=== PATIENT | female | born 1940 | race African-American/Black ===

== ENCOUNTER → 2016-07-23 | Outpatient (CLI) | payer MEDICARE, MEDICAID ==
[~2016-07-23] MED LIST: ACETAMINOPHEN325 M1 PO; ACETAMINOPHEN500 M3 PO; ACYCLOVIR800 MG PO; ASPIRIN 81MG TA81 MG PO; ATIVAN GENERIC0.5 MG PO; BACLOFEN 10MG T10 MG PO; BENADRYL 25MG C25 MG PO; BENZTROPINE ME0.5 MG PO; CELEXA20 M1 PO; CITALOPRAM10 MG PO; COMPAZINE10 MG PO; DEPAKOTE 125MG125 MG PO; DEPAKOTE 250MG250 MG PO; DEPAKOTE 500MG500 MG PO; ENULOSE10 GM/15 M PO; ETODOLAC400 MG PO; ETOLDOLAC400 MG PO; FLEXERIL10 MG PO; GENTAMICIN O5 ML/BOT OP; IMODIUM 2MG. CAP2 MG PO; KEFLEX 500MG.500 MG PO; LISINOPRIL 10MG10 MG PO; MAXZIDE 25 MG-31 TAB PO; MAXZIDE 50 MG-71 TAB PO; METFORMIN500 MG PO; NYSTATIN100000 U/2 EX; NYSTATIN100000 U/G EX; PROAIR HFA0.09 MG/AC IH; PROMETHAZINE25 M1 PO; Q-TUSSIN DM 10120 ML PO; Q-TUSSIN100 MG/5 M PO; RISPERDAL 0.50.5 MG PO; RISPERDAL0.5 MG PO; RISPERDAL1 MG PO; ROBITUSSIN DM S10 ML PO; SILVADENE1% TP; TOVIAZ8 MG PO
--- NOTE | 2016-07-23 11:02 | CARDIOVASCULAR REPORT ---
"Venous Exam Indications: 729.81 Swelling of limb. IMPRESSIONS 1. There is no evidence of significant Reflux. 2. Technically difficult study secondary to obesity and tremors .No evidence of deep or superficial vein thrombosis involving the right lower extremity 3. No evidence of deep or superficial vein thrombosis involving the left lower extremity Complete lower extremity venous duplex evaluation. Doppler flow study including spectral analysis, color and rome scale imaging. Location: Vascular laboratory. Patient status: Outpatient. Tables: Venous flow and imaging: + +-------+ + |Location |Overall|Flow properties | + +-------+ + |Right common femoral |Patent |Normal phasicity; spontaneous; | | | |normal augmentation; compressible| + +-------+ + |Right saphenofemoral junction|Patent |Compressible | + +-------+ + |Right profunda femoral |Patent |Compressible | + +-------+ + |Right femoral |Patent |Normal phasicity; spontaneous; | | | |normal augmentation; | | | |compressible; no reflux | + +-------+ + |Right greater saphenous |Patent |Normal phasicity; spontaneous; | | | |normal augmentation; compressible| + +-------+ + |Right popliteal |Patent |Normal phasicity; spontaneous; | | | |normal augmentation; compressible| + +-------+ + |Right posterior tibial |Patent |Compressible | + +-------+ + |Right peroneal |Patent |Compressible | + +-------+ + |Right gastrocnemius |Patent |Compressible | + +-------+ + |Right soleal |Patent |Compressible | + +-------+ + |Left common femoral |Patent |Normal phasicity; spontaneous; | | | |normal augmentation; compressible| + +-------+ + |Left saphenofemoral junction |Patent |Compressible | + +-------+ + |Left profunda femoral |Patent |Compressible | + +-------+ + |Left femoral |Patent |Normal phasicity; spontaneous; | | | |normal augmentation; compressible| + +-------+ + |Left greater saphenous |Patent |Normal phasicity; spontaneous; | | | |normal augmentation; compressible| + +-------+ + |Left popliteal |Patent |Normal phasicity; spontaneous; | | | |normal augmentation; compressible| + +-------+ + |Left posterior tibial |Patent |Compressible | + +-------+ + |Left peroneal |Patent |Compressible | + +-------+ + |Left gastrocnemius |Patent |Compressible | + +-------+ + |Left soleal |Patent |Compressible | + +-------+ + (Report amended ) Electronically signed by: Michael Oliveira [id number]"
== END ==
LOC: RAD 07:30 → RT 09:57
DX: R60.0 Localized edema (principal); R94.31 Abnormal electrocardiogram [ECG] [EKG]; R00.0 Tachycardia, unspecified

== ENCOUNTER 2017-06-01 10:03 | Emergency (ER) | payer MEDICARE, MEDICAID ==
[~2017-06-01] VITALS: Ht 152.4 cm; Wt 99.8 kg
--- NOTE | 2017-06-01 10:19 | Emergency Room Report ---
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 N Clinical Suspician of Infection? N Mental Status: 1 - Regular (Normal Baseline) Sepsis Risk:Low Sepsis Risk Have you (or family members/close friends) recently traveled outside the [place]? N If Yes, where/when: Have you had exposure to infectious disease within the past month? N TB? Other? Specify: 76 years old -Citizen Of The [place] female who was sent by my personal intermediate because of elevated systolic blood pressure of 200 mmhg. upon EMS arrival the blood pressure was 150 mmhg and heart rate of 90/m. Upon arrival to the ED her systolic blood pressure 123 mmhg and HR 92/min. the patient is asymptomatic with no complaints. The patient reports that her blood pressure was taken earlier before she takes a blood pressure medicine, she was given her blood pressure medicine and this was called. She denies having chest pain shortness of breath palpitations headache neck stiffness nausea or vomiting or abdominal pain. She has chronic leg swelling. Source patient, RN notes reviewed, EMS, halfway records Exam Limitations no limitations ALLERGIES Coded Allergies: No Known Allergies (10/04/15) Home Medications Reported Medications Divalproex Sodium (Depakote) 500 MG PO QHS Risperidone (Risperdal) 1 TAB PO QHS ASPIRIN (Aspirin) 81 MG PO DAILY Benztropine Mesylate 0.5 MG PO BID Divalproex Sodium (Depakote) 250 MG PO QAM LISINOPRIL (Lisinopril) 10 MG PO DAILY TRIAMTERENE/HYDROCHLOROTHIAZID (Triamterene-Hctz 75-50 MG Tab) 1 TAB PO BID BACLOFEN (Baclofen) 10 MG PO BID GENTAMICIN SULFATE (GENTAMICIN 0.3% OPH SOLN) 1 DROP OP QID Metformin HCL (Metformin) 500 MG PO BID Fesoterodine Fumarate (Toviaz) 8 MG PO DAILY Citalopram Hydrobromide (Celexa) 20 MG PO DAILY History Medical History General CAD? No Angina: No [place]: No Hypertension? Yes Hyperlipidemia? No CHF? No DVT? No PE? No COPD? No Asthma? No Anemia? No GERD? No Gastric ulcers? No GI Bleed? No Hernia? No Thyroid Problems? No Hypothyroidism? No CVA? No Seizures? Yes Diabetes? Yes Insulin Dependent: No Insulin Pump: No Home FSBS? Yes Renal Insuffiency? No End Stage Renal Disease? No UTI? No Stones? No BPH? No GB Disease: No Nephritic Syndrome? No Asplenia? No Hepatitis? No Sickle Cell Disease? No Arthritis? Yes Migraines? No Cataracts? No Glaucoma? No MRSA? No HIV? No TB? No Anxiety? Yes Depression? Yes Cancer? No More? Yes Additional hx: BIPOLAR, SCHIZOPHRENIA Immunization Hx DT/Tetanus < 1 Year Ago Flu 2015-16FSN Pneumonia Refuses Surgical Hx Previous Surgery?N Family History Family Hx Diabetes Yes Hypertension Yes Cancer Yes Social History Smoking Hx Smoker: Never Smoker Tobacco: No Alcohol Alcohol: No Review of Systems All Other Systems Reviewed and Negative Constitutional no symptoms reported, see HPI Eyes no symptoms reported ENT no symptoms reported. Respiratory no symptoms reported Cardiovascular no symptoms reported Gastrointestinal no symptoms reported Genitourinary no symptoms reported. Musculoskeletal no symptoms reported Skin no symptoms reported Psychiatric/Neurological no symptoms reported Physical Exam Vital Signs Vital Signs Date Time Temp Pulse Resp B/P Pulse O2 O2 Flow FiO2 Ox Delivery Rate 06/01 1052 90 18 140/78 95 06/01 1050 92 18 140/78 95 06/01 1003 98.2 92 18 123/44 94 - WBC >12,000 or <4,000 or 10% bands? 2 or more SIRS Criteria Met? B/P:123/44 MAP:70 Creatinine >2.0? UA output<0.5ml/kg/hr for 2 hrs? Platelet count >100,000? Lactate >2.0mmol/1? INR >1.2 or PTT > than 60 sec? Evidence of Organ Dysfunction? Provider documented clinical suspician of infection? N Sepsis Criteria Count: 1 Sepsis Risk: Low Sepsis Risk General Appearance normal appearance, WD/WN, no apparent distress (patient has no complaint) Eye Exam - bilateral eye normal exam, bilateral eye PERRL, bilateral eye EOMI Ear, Nose, Throat hearing grossly normal (macroglossia) Neck normal inspection, non-tender, supple, full range of motion Respiratory Status Yes: trachea midline, chest symmetrical, non tender chest. No: respiratory distress. Lung Sounds bilateral: normal breath sounds, lungs clear. Cardiovascular normal exam, regular rate/rhythm, no peripheral edema, no gallop, no JVD, no murmur, no rub, normal peripheral pulses Peripheral Pulses Pulses normal Yes Gastrointestinal normal bowel sounds, normal exam, non tender, soft, no organomegaly Back normal inspection, no CVA tenderness, no vertebral tenderness Extremities non-tender, normal range of motion, normal inspection, normal capillary refill, no calf tenderness, swelling, the patient has bilateral venous stasis of the lower extremities with no calf tenderness. Equal and symmetrical by inspection. 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 No Results/Orders Laboratory Tests 06/01/17 1040: Sodium 134 L, Potassium 4.3, Chloride 98, Carbon Dioxide 27, BUN 19 H, Creatinine 1.4 H, Estimated Creat Clear 55, Estimated GFR (MDRD) 37 L, Glucose 222 H, Calcium 9.2, Magnesium 1.1 L, Total Bilirubin 0.3, AST 64 H, ALT 49, Alkaline Phosphatase 67, Troponin I < 0.02, Total Protein 8.5 H, Albumin 3.3 L , Globulin 5.2 H, Albumin/Globulin Ratio 0.6 L, WBC 7.4, RBC 4.15 L, Hgb 12.8 , Hct 41.1, MCV 99.2 H, RDW 12.7, Plt Count 235, MPV 8.4, Gran % 46.2, Gran # 3.4, Lymphocytes % 44.3, Monocytes % 4.9, Eosinophils % 3.9, Basophils % 0.7, Lymphocytes # 3.3, Monocytes # 0.4, Eosinophils # 0.3, Basophils # 0.1, PUBS MCHC 31.0 L, MCH 30.7 Current Medication Orders Sig/Keturah Start time Last Medication Dose Route Stop Time Status Admin Sodium Chloride 10 ML PRN PRN 06/01 1030 AC IV 06/02 1019 Orders Procedure Date/time Status IV SALINE LOCK 06/01 1019 Active GEN NSG/PT REQ (NOT FOR MEDS!) 06/01 1019 Active ELECTROCARDIOGRAM REQUEST 06/01 1011 Active TROPONIN I 06/01 1011 Complete MAGNESIUM 06/01 1011 Complete CBC WITH AUTO DIFF 06/01 1011 Complete CHEM 12 PROFILE 06/01 1011 Complete CM/EKG CM/EKG EKG rate, NSR, rhythm, no evid. of ischemic chgs, no ectopy, normal QRS, normal ND, normal EKG Comments NSR 88/min, baseline artifact, p, qrs and T waves are within normal limit. Departure Departure Time of Disposition 1128 Disposition DC Home or Self Care(routine) Clinical Impression Primary Impression: Labile hypertension Secondary Impressions: Chronic renal insufficiency, Hypomagnesemia, Tremors of nervous system, Venous stasis dermatitis of both lower extremities Condition STABLE Referrals Sixto MANCERA,Ajit Sharif (Family) Additional Instructions continue blood pressure monitoring and report readings to the pcp for BP management. Also,she will need a Neurology referral for her tremors. follow up with Dr Rousseau for a magnesium recheck on Saturday. Discharge Counseling Counseled pt/family regarding diagnosis, test results, medications/RX, home care, follow up needs Prescriptions Current Visit Scripts Magnesium Oxide (Magnesium) 400 MG PO DAILY #3 CAPSULE ED Critical Care Critical Care No at 1131
--- NOTE | 2017-06-01 10:19 | Emergency Room Report ---
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 N Clinical Suspician of Infection? N Mental Status: 1 - Regular (Normal Baseline) Sepsis Risk:Low Sepsis Risk Have you (or family members/close friends) recently traveled outside the [place]? N If Yes, where/when: Have you had exposure to infectious disease within the past month? N TB? Other? Specify: 76 years old -[place]ron[place] female who was sent by my personal chcf because of elevated systolic blood pressure of 200 mmhg. upon EMS arrival the blood pressure was 150 mmhg and heart rate of 90/m. Upon arrival to the ED her systolic blood pressure 123 mmhg and HR 92/min. the patient is asymptomatic with no complaints. The patient reports that her blood pressure was taken earlier before she takes a blood pressure medicine, she was given her blood pressure medicine and this was called. She denies having chest pain shortness of breath palpitations headache neck stiffness nausea or vomiting or abdominal pain. She has chronic leg swelling. Source patient, RN notes reviewed, EMS, care home records Exam Limitations no limitations ALLERGIES Coded Allergies: No Known Allergies (10/04/15) Home Medications Reported Medications Divalproex Sodium (Depakote) 500 MG PO QHS Risperidone (Risperdal) 1 TAB PO QHS ASPIRIN (Aspirin) 81 MG PO DAILY Benztropine Mesylate 0.5 MG PO BID Divalproex Sodium (Depakote) 250 MG PO QAM LISINOPRIL (Lisinopril) 10 MG PO DAILY TRIAMTERENE/HYDROCHLOROTHIAZID (Triamterene-Hctz 75-50 MG Tab) 1 TAB PO BID BACLOFEN (Baclofen) 10 MG PO BID GENTAMICIN SULFATE (GENTAMICIN 0.3% OPH SOLN) 1 DROP OP QID Metformin HCL (Metformin) 500 MG PO BID Fesoterodine Fumarate (Toviaz) 8 MG PO DAILY Citalopram Hydrobromide (Celexa) 20 MG PO DAILY History Medical History General CAD? No Angina: No [place]: No Hypertension? Yes Hyperlipidemia? No CHF? No DVT? No PE? No COPD? No Asthma? No Anemia? No GERD? No Gastric ulcers? No GI Bleed? No Hernia? No Thyroid Problems? No Hypothyroidism? No CVA? No Seizures? Yes Diabetes? Yes Insulin Dependent: No Insulin Pump: No Home FSBS? Yes Renal Insuffiency? No End Stage Renal Disease? No UTI? No Stones? No BPH? No GB Disease: No Nephritic Syndrome? No Asplenia? No Hepatitis? No Sickle Cell Disease? No Arthritis? Yes Migraines? No Cataracts? No Glaucoma? No MRSA? No HIV? No TB? No Anxiety? Yes Depression? Yes Cancer? No More? Yes Additional hx: BIPOLAR, SCHIZOPHRENIA Immunization Hx DT/Tetanus < 1 Year Ago Flu 2015-16FSN Pneumonia Refuses Surgical Hx Previous Surgery?N Family History Family Hx Diabetes Yes Hypertension Yes Cancer Yes Social History Smoking Hx Smoker: Never Smoker Tobacco: No Alcohol Alcohol: No Review of Systems All Other Systems Reviewed and Negative Constitutional no symptoms reported, see HPI Eyes no symptoms reported ENT no symptoms reported. Respiratory no symptoms reported Cardiovascular no symptoms reported Gastrointestinal no symptoms reported Genitourinary no symptoms reported. Musculoskeletal no symptoms reported Skin no symptoms reported Psychiatric/Neurological no symptoms reported Physical Exam Vital Signs Vital Signs Date Time Temp Pulse Resp B/P Pulse O2 O2 Flow FiO2 Ox Delivery Rate 06/01 1052 90 18 140/78 95 06/01 1050 92 18 140/78 95 06/01 1003 98.2 92 18 123/44 94 - WBC >12,000 or <4,000 or 10% bands? 2 or more SIRS Criteria Met? B/P:123/44 MAP:70 Creatinine >2.0? UA output<0.5ml/kg/hr for 2 hrs? Platelet count >100,000? Lactate >2.0mmol/1? INR >1.2 or PTT > than 60 sec? Evidence of Organ Dysfunction? Provider documented clinical suspician of infection? N Sepsis Criteria Count: 1 Sepsis Risk: Low Sepsis Risk General Appearance normal appearance, WD/WN, no apparent distress (patient has no complaint) Eye Exam - bilateral eye normal exam, bilateral eye PERRL, bilateral eye EOMI Ear, Nose, Throat hearing grossly normal (macroglossia) Neck normal inspection, non-tender, supple, full range of motion Respiratory Status Yes: trachea midline, chest symmetrical, non tender chest. No: respiratory distress. Lung Sounds bilateral: normal breath sounds, lungs clear. Cardiovascular normal exam, regular rate/rhythm, no peripheral edema, no gallop, no JVD, no murmur, no rub, normal peripheral pulses Peripheral Pulses Pulses normal Yes Gastrointestinal normal bowel sounds, normal exam, non tender, soft, no organomegaly Back normal inspection, no CVA tenderness, no vertebral tenderness Extremities non-tender, normal range of motion, normal inspection, normal capillary refill, no calf tenderness, swelling, the patient has bilateral venous stasis of the lower extremities with no calf tenderness. Equal and symmetrical by inspection. 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 No Results/Orders Laboratory Tests 06/01/17 1040: Sodium 134 L, Potassium 4.3, Chloride 98, Carbon Dioxide 27, BUN 19 H, Creatinine 1.4 H, Estimated Creat Clear 55, Estimated GFR (MDRD) 37 L, Glucose 222 H, Calcium 9.2, Magnesium 1.1 L, Total Bilirubin 0.3, AST 64 H, ALT 49, Alkaline Phosphatase 67, Troponin I < 0.02, Total Protein 8.5 H, Albumin 3.3 L , Globulin 5.2 H, Albumin/Globulin Ratio 0.6 L, WBC 7.4, RBC 4.15 L, Hgb 12.8 , Hct 41.1, MCV 99.2 H, RDW 12.7, Plt Count 235, MPV 8.4, Gran % 46.2, Gran # 3.4, Lymphocytes % 44.3, Monocytes % 4.9, Eosinophils % 3.9, Basophils % 0.7, Lymphocytes # 3.3, Monocytes # 0.4, Eosinophils # 0.3, Basophils # 0.1, PUBS MCHC 31.0 L, MCH 30.7 Current Medication Orders Sig/Keturah Start time Last Medication Dose Route Stop Time Status Admin Sodium Chloride 10 ML PRN PRN 06/01 1030 AC IV 06/02 1019 Orders Procedure Date/time Status IV SALINE LOCK 06/01 1019 Active GEN NSG/PT REQ (NOT FOR MEDS!) 06/01 1019 Active ELECTROCARDIOGRAM REQUEST 06/01 1011 Active TROPONIN I 06/01 1011 Complete MAGNESIUM 06/01 1011 Complete CBC WITH AUTO DIFF 06/01 1011 Complete CHEM 12 PROFILE 06/01 1011 Complete CM/EKG CM/EKG EKG rate, NSR, rhythm, no evid. of ischemic chgs, no ectopy, normal QRS, normal DE, normal EKG Comments NSR 88/min, baseline artifact, p, qrs and T waves are within normal limit. Departure Departure Time of Disposition 1128 Disposition DC Home or Self Care(routine) Clinical Impression Primary Impression: Labile hypertension Secondary Impressions: Chronic renal insufficiency, Hypomagnesemia, Tremors of nervous system, Venous stasis dermatitis of both lower extremities Condition STABLE Referrals Sixto MANCERA,Ajit Sharif (Family) Additional Instructions continue blood pressure monitoring and report readings to the pcp for BP management. Also,she will need a Neurology referral for her tremors. follow up with Dr Rousseau for a magnesium recheck on Saturday. Discharge Counseling Counseled pt/family regarding diagnosis, test results, medications/RX, home care, follow up needs Prescriptions Current Visit Scripts Magnesium Oxide (Magnesium) 400 MG PO DAILY #3 CAPSULE ED Critical Care Critical Care No at 1131
--- OUTSIDE RECORDS SUMMARY | 2017-06-01 10:41 | External Medical Summary Rpt | CCD ---
Demographics Preferred Language Honduran Marital Status Unknown Muslim Affiliation Unknown Race Unknown Ethnic Group Unknown Author Author , HELENA MALIK Address Unknown Phone Immunization No patient found.
--- OUTSIDE RECORDS SUMMARY | 2017-06-01 10:41 | External Medical Summary Rpt | CCD ---
Author Author , HELENA Organization [facility] Address Unknown Phone [email or web address] Team Providers Care Tractor Operator Name Role Phone Louis Henson MD, Unavailable Unavailable Louis Henson MD Purpose Continuity of Care Document - 05-10-2013 through 2016 Problems Code Diagnosis DOS Provider Status 250.00 250.00 DIAB 05-11-2013 [facility], TYPE Hospital II OR UNSPEC TYPE, NOT UNCNTRLD 401.9 401.9 05-11-2013 [place] HYPERTENSIO [facility] 729.1 729.1 05-11-2013 [place] MYALGIA AND [facility] MYOSITIS Hospital NOS 786.59 786.59 05-11-2013 [place] CHEST PAIN [facility] V58.69 V58.69 OTH 05-11-2013 [place] MED,LT,[facility] ENT USE Hospital Allergies, Adverse Reactions, Alerts Type Allergy to substance Adverse Reaction to Substance Substance Reaction Severity NO KNOWN ALLERGIES Unknown Unknown Vital Signs 05-11-2013 00:22 Name Value Interpretat Reference Comment ion Range BP 100 mm[Hg] Diastolic BP Systolic 153 mm[Hg] Heart 100 /min Rate/Pulse O2% 95 % Respiratory 18 /min Rate 05-10-2013 20:44 Name Value Interpretat Reference Comment ion Range BP 88 mm[Hg] Diastolic BP Systolic 195 mm[Hg] Heart 104 /min Rate/Pulse O2% 99 % Respiratory 20 /min Rate Results Labs Lab Lab Date Result Refere Interp Status Commen Order Detail nces retati t Range on TSH SerPl DL<=0.005 mIU/L-aCnc (09-20-2016 16:12) TSH 4.00 0.4-4.2 complet SerPl 017 uIU/mL ed DL<=0.0 16:12 05 mIU/L-a Cnc COMPREHENSIVE METABOLIC PANEL (05-10-2013 19:30) Glucose 105 74-106 complet 013 mg/dL ed Bld-mCn 19:30 c BUN 05-10- 26 7-18 complet Bld-mCn 013 mg/dL ed c 19:30 Creat 05-10-2 1.7 0.6-1.0 complet SerPl-m 013 mg/dL ed Cnc 19:30 ESTIMAT 05-10-2 37 50-200 complet ED 013 ML/MIN ed CREATIN 19:30 INE CLEARAN CE GFR 30 59- complet (ESTIMA 013 ML/MIN ed RUBEN) 19:30 Sodium 05-10- 126 136-145 complet SerPl-s 013 mmoL/L ed Cnc 19:30 Potassi 3.9 3.5-5.1 complet um 013 mmoL/L ed SerPl-s 19:30 Cnc Chlorid 05-10- 92 98-107 complet e 013 mmoL/L ed SerPl-s 19:30 Cnc CO2 27 21.0-32 complet SerPl-s 013 mmoL/L .0 ed Cnc 19:30 Calcium 05-10- 8.2 8.5-10. complet 013 mg/dL 1 ed SerPl-m 19:30 Cnc Prot 05-10- 8.3 6.4-8.2 complet SerPl-m 013 gm/dL ed Cnc 19:30 Albumin 05-10- 3.4 3.4-5.0 complet 013 gm/dL ed SerPl-m 19:30 Cnc Globuli 05-10- 4.9 1.3-3.2 complet n 013 gm/dL ed Ser-mCn 19:30 c Albumin 05-10-2 0.7 UNK 1.1-1.8 complet /Glob 013 ed SerPl-m 19:30 Rto Bilirub 05-10-2 0.2 0.2-1.0 complet 013 mg/dL ed SerPl-m 19:30 Cnc AST 05-10- 19 U/L 15-37 complet SerPl-c 013 ed Cnc 19:30 ALT 05-10- 34 U/L 30-65 complet SerPl-c 013 ed Cnc 19:30 ALP 05-10- 77 U/L 50-136 complet SerPl-c 013 ed Cnc 19:30 CBC with AUTO DIFF (05-10-2013 19:30) WBC # 10-20-2 10.4 4.8-10. complet Bld 013 K/MM3 8 ed Auto 19:30 RBC # 10-20-2 3.62 4.2-5.4 complet Bld 013 M/mm3 ed Auto 19:30 Hgb 10-20-2 11.2 12.2-16 complet Bld-mCn 013 g/dL .2 ed c 19:30 Hct Fr 10-20-2 33.8 % 37.0-47 complet Bld 013 .0 ed 19:30 MCV RBC 10-20-2 93.5 fl 82.2-97 complet 013 .8 ed 19:30 MCH RBC 10-20-2 30.9 pg 27-31.2 complet Qn 013 ed Auto 19:30 MEAN 10-20-2 33.1 31.8-35 complet CORPUSC 013 g/dl .4 ed ULAR 19:30 HGB CONC RDW RBC 10-20-2 14.2 % 11.5-17 complet Auto 013 .5 ed 19:30 Platele 10-20-2 277 142-424 complet t Bld 013 K/mm3 ed Ql 19:30 Manual MEAN 10-20-2 7.4 fl 7.4-10. complet PLATELE 013 4 ed T 19:30 VOLUME Granulo 10-20-2 35.4 % 37.0-80 complet cytes 013 .0 ed Fr Bld 19:30 Auto LYMPH % 10-20-2 51.8 % 10-50.0 complet 013 ed 19:30 Monocyt 10-20-2 5.6 % 1.7-9.3 complet es Fr 013 ed Bld 19:30 Auto Eosinop 10-20-2 6.5 % 0.1-12. complet hil Fr 013 0 ed Bld 19:30 Auto Basophi 10-20-2 0.8 % 0.1-2.0 complet ls Fr 013 ed Bld 19:30 Auto Granulo 10-20-2 3.7 1.8-7.8 complet cytes # 013 K/mm3 ed Bld 19:30 Auto Lymphoc 10-20-2 5.4 0.7-4.5 complet ytes Fr 013 K/mm3 ed Bld 19:30 Auto Monocyt 10-20-2 0.6 0.1-1.0 complet es # 013 K/mm3 ed Bld 19:30 Auto Eosinop 05-10- 0.7 0.0-0.4 complet hil # 013 K/mm3 ed Bld 19:30 Auto Basophi 05-10- 0.1 0-0.2 complet ls # 013 K/MM3 ed Bld 19:30 Auto Encounters Encounter Start End Date Code Location Performer Type Date Emergency KEISHA Henson MD (ER) 3 19:54 3 00:20 [facility]
--- OUTSIDE RECORDS SUMMARY | 2017-06-01 10:41 | External Medical Summary Rpt | CCD ---
Demographics Preferred Language Pakistani Marital Status Unknown Baptist Affiliation Unknown Race Unknown Ethnic Group Unknown Author Author , HELENA MALIK Address Unknown Phone Immunization No patient found.
--- OUTSIDE RECORDS SUMMARY | 2017-06-01 10:41 | External Medical Summary Rpt | CCD ---
Author Author , HELENA Organization [facility] Address Unknown Phone [email or web address] Care Team Providers Care Associate Loan Officer Name Role Phone Louis Henson MD, Unavailable Unavailable Louis Henson MD Purpose Continuity of Care Document - 05-10-2013 through 2016 Problems Code Diagnosis DOS Provider Status 250.00 250.00 DIAB 05-11-2013 [facility], TYPE Hospital II OR UNSPEC TYPE, NOT UNCNTRLD 401.9 401.9 05-11-2013 [place] HYPERTENSIO [facility] 729.1 729.1 05-11-2013 [place] MYALGIA AND [facility] MYOSITIS Hospital NOS 786.59 786.59 05-11-2013 [place] CHEST PAIN [facility] Hospital V58.69 V58.69 OTH 05-11-2013 [place] MED,LT,[facility] ENT USE Hospital Allergies, Adverse Reactions, Alerts [...] Henson MD (ER) 3 19:54 3 00:20 [facility]
--- OUTSIDE RECORDS SUMMARY | 2017-06-01 10:41 | External Medical Summary Rpt | CCD ---
Author Author [employer] Organization [employer] Address Unknown Phone Unavailable Purpose Continuity of Care Document - through 2016
[2017-06-01 10:58] LABS: LYMPH # 3.3 K/mm3 (0.7-4.5); LYMPH % 44.3 % (10-50.0)
[2017-06-01 11:04] LABS: HEMOGLOBIN 12.8 g/dL (12.2-16.2)
[2017-06-01 11:10] LABS: BUN 19 mg/dL (7-18)
[2017-06-01 11:15] LABS: GFR (ESTIMATED) 37 ML/MIN (59-)
[2017-06-01] MEDS ORDERED: MAGNESIUM400 M1 PO (11:30)
[2017-06-01 11:50] VITALS: BP 125/88
== END 2017-06-01 11:50 | disposition home or self-care (01) ==
LOC: ER 10:03
PROVIDERS: Emergency Medicine
DX: I10 Essential (primary) hypertension (principal); E11.9 Type 2 diabetes mellitus without complications; Z79.84 Long term (current) use of oral hypoglycemic drugs; F41.8 Other specified anxiety disorders; N28.9 Disorder of kidney and ureter, unspecified; I87.8 Other specified disorders of veins